=== PATIENT | male | born 1985 | race African-American/Black ===

== ENCOUNTER 2022-11-03 19:05 | Emergency (ER) | payer MEDICAID ==
[2022-11-03] MEDS ORDERED: Hydromorphone 1 mg/ml Injection IV ONE ×2 (19:35→20:19)
[2022-11-03] MEDS ORDERED: Lactated Ringers 1,000 ML IV ONE ×4 (19:35→20:40)
[2022-11-03 19:41] VITALS: TEMP 98.3
[2022-11-03] MEDS ORDERED: Hydromorphone 1 mg/ml Injection ONE ×2 (19:43→20:21)
--- NOTE | 2022-11-03 19:54 | ERPHSYRPT ---
- History of Present Illness Time Seen by Provider: 11/03/22 19:53 Source: patient Exam Limitations: no limitations Patient Subjective Stated Complaint: pt states he is here to be treated for his sickle cell pain. he reports that he is having his "typical sickle cell pain" that is located to bilateral upper chest and bilat upper back. he describes it as constant ache, sharp, and pressure that is rated 9/10. he reports that this pain started yesterday morning and is better today than it was yesterday. he states he was at his [facility] folder office with [facility] yesterday morning for his pain and to get prescription refills. while there he rec'd an infusion "of some pain medicine" that didn't lessen his pain at all so was told to go to the ER. pt normally is treated to [facility] in [place] so he went there yesterday. in the ER he rec'd "a shot of something" in right upper arm then was sent home without any relief. he came here today to "try this hospital out and see how it goes". Triage Nursing Assessment: pt is alert and oriented times three, ambulated independently with slow steady gait to room 9, resp even and unlabored, able to move all extremities, able to speak in complete sentences. denies other pain that "sickle cell pain to chest and back", denies sob, nausea, vomiting, difficulty breathing, or other ill feelings. bilat radial and dorsalis pedus pulses regular, equal, and present. heart sounds are present and regular. bilat anterior lung sounds clear throughout. Physician History: pt states he is here to be treated for his sickle cell pain. he reports that he is having his "typical sickle cell pain" that is located to bilateral upper chest and bilat upper back. he describes it as constant ache, sharp, and pressure that is rated 9/10. he reports that this pain started yesterday morning and is better today than it was yesterday. he states he was at his [facility] office with [facility] yesterday morning for his pain and to get prescription refills. while there he rec'd an infusion "of some pain medicine" that didn't lessen his pain at all so was told to go to the ER. pt normally is treated to [facility] in [place] so he went there yesterday. in the ER he rec'd "a shot of something" in right upper arm then was sent home without any relief. he came here today to "try this hospital out and see how it goes". Timing/Duration: today Severity: moderate Associated Symptoms: denies symptoms Allergies/Adverse Reactions: No Known Drug Allergies Allergy (Verified 11/03/22 19:15) Home Medications: Gabapentin 600 mg PO BID 11/03/22 [History] Hydromorphone HCl 2 mg [Dilaudid 2 MG] 2 mg PO Q4HPRN PRN 11/03/22 [History] Hydroxyurea [Hydrea] 500 mg PO TID 11/03/22 [History] Ondansetron ODT 4 MG [Zofran Odt 4 mg] 4 mg PO Q8H PRN PRN 11/03/22 [History] Oxycodone HCl [Oxycodone HCl ER] 10 mg PO Q6HPRN PRN 11/03/22 [History] Pyridoxine HCl (Vitamin B6) [Vitamin B-6] 50 mg PO DAILY 11/03/22 [History] Hx Tetanus, Diphtheria Vaccination/Date Given: Yes Hx Influenza Vaccination/Date Given: Yes Hx Pneumococcal Vaccination/Date Given: No Immunizations Up to Date: Yes Travel Risk - International Travel Have you traveled outside of the country in past 3 weeks: No - Coronavirus Screening Are you exhibiting any of the following symptoms?: No Close contact with a COVID-19 positive Pt in past 14-21 Days: No - Vaccine Status Have you recieved a Covid-19 vaccination: Yes [employer]: [employer] - Review of Systems Constitutional: No Fever, No Chills Eyes: No Symptoms Ears, Nose, & Throat: No Symptoms Respiratory: No Cough, No Dyspnea Cardiac: No Chest Pain, No Edema, No Syncope Abdominal/Gastrointestinal: No Abdominal Pain, No Nausea, No Vomiting, No Diarrhea Genitourinary Symptoms: No Dysuria Musculoskeletal: Back Pain, Neck Pain, Joint Pain, Myalgias Skin: No Rash Neurological: No Dizziness, No Focal Weakness, No Sensory Changes Psychological: No Symptoms Endocrine: No Symptoms All Other Systems: Reviewed and Negative - Past Medical History Pertinent Past Medical History: Yes Neurological History: No Pertinent History ENT History: No Pertinent History Cardiac History: No Pertinent History Respiratory History: No Pertinent History Endocrine Medical History: No Pertinent History Musculoskeletal History: No Pertinent History GI Medical History: No Pertinent History History: No Pertinent History Psycho-Social History: No Pertinent History Male Reproductive Disorders: No Pertinent History Other Medical History: sickle cell. - Past Surgical History Past Surgical History: Yes Neuro Surgical History: No Pertinent History Cardiac: No Pertinent History Respiratory: No Pertinent History Gastrointestinal: No Pertinent History Genitourinary: No Pertinent History Musculoskeletal: No Pertinent History Male Surgical History: No Pertinent History Other Surgical History: right upper chest port a cath placement in 2018 - Social History Smoking Status: Never smoker Exposure to second hand smoke: No Drug Use: marijuana Patient Lives Alone: No - Nursing Vital Signs Nursing Vital Signs: Initial Vital Signs Pulse Rate 88 11/03/22 19:13 Respiratory Rate 19 11/03/22 19:13 Blood Pressure 147/88 11/03/22 19:13 O2 Sat by Pulse Oximetry 94 L 11/03/22 19:13 Pain Scale Pain Intensity 5 - Physical Exam General Appearance: no apparent distress, alert Eye Exam: PERRL/EOMI, eyes nml inspection Ears, Nose, Throat Exam: normal ENT inspection, TMs normal, pharynx normal, moist mucous membranes Neck Exam: normal inspection, non-tender, supple, full range of motion Respiratory Exam: normal breath sounds, lungs clear, No respiratory distress Cardiovascular Exam: regular rate/rhythm, normal heart sounds, normal peripheral pulses Gastrointestinal/Abdomen Exam: soft, normal bowel sounds, No tenderness, No mass Back Exam: normal inspection, normal range of motion, No CVA tenderness, No vertebral tenderness Extremity Exam: normal inspection, normal range of motion, pelvis stable Neurologic Exam: alert, oriented x 3, cooperative, normal mood/affect, nml cerebellar function, nml station & gait, sensation nml, No motor deficits Skin Exam: normal color, warm, dry, No rash Lymphatic Exam: No adenopathy SpO2: 95 - Course Nursing assessment & vital signs reviewed: Yes Ordered Tests: Active Orders 24 hr Category Date Time Status CBC W DIFF Stat Lab 11/03/22 20:02 Completed CMP Stat Lab 11/03/22 20:02 Completed Manual Differential NC Stat Lab 11/03/22 20:02 Completed Medication Summary Generic Name Dose Route Start Last Admin Trade Name Freq PRN Reason Stop Dose Admin Hydromorphone HCl 4 mg 11/03/22 21:22 Hydromorphone Hcl 4 Mg Tab PO 11/08/22 21:21 Q4H PRN PRN PAIN Discontinued Medications Generic Name Dose Route Start Last Admin Trade Name Makq PRN Reason Stop Dose Admin Hydromorphone HCl 1 mg 11/03/22 19:35 11/03/22 19:46 Hydromorphone 1 Mg/1ml Inj IV 11/03/22 19:36 1 mg STAT ONE Administration Hydromorphone HCl Confirm 11/03/22 19:43 Hydromorphone 1 Mg/1ml Inj Administered 11/03/22 19:44 Dose 1 mg .ROUTE .STK-MED ONE Hydromorphone HCl 1 mg 11/03/22 20:19 11/03/22 20:23 Hydromorphone 1 Mg/1ml Inj IV 11/03/22 20:20 1 mg STAT ONE Administration Hydromorphone HCl Confirm 11/03/22 20:21 Hydromorphone 1 Mg/1ml Inj Administered 11/03/22 20:22 Dose 1 mg .ROUTE .STK-MED ONE Lactated Ringer's 1,000 mls @ 999 mls/hr 11/03/22 19:35 11/03/22 20:51 Lactated Ringers IV 11/03/22 20:35 Infused .Q1H1M ONE Infusion Lactated Ringer's Confirm 11/03/22 19:43 Lactated Ringers Administered 11/03/22 19:44 Dose 1,000 mls @ ud IV .STK-MED ONE Lactated Ringer's 1,000 mls @ 999 mls/hr 11/03/22 20:24 11/03/22 20:41 Lactated Ringers IV 11/03/22 21:24 999 mls/hr .Q1H1M ONE Administration Lactated Ringer's Confirm 11/03/22 20:40 Lactated Ringers Administered 11/03/22 20:41 Dose 1,000 mls @ ud IV .STK-MED ONE Ketamine HCl 50 mg 11/03/22 20:32 11/03/22 21:24 Ketamine Hcl 50 Mg/Ml IV 11/03/22 20:33 Not Given STAT ONE Ketorolac Tromethamine 30 mg 11/03/22 20:33 11/03/22 20:41 Ketorolac Tromethamine 30 Mg/Ml Inj IV 11/03/22 20:34 30 mg STAT ONE Administration Ketorolac Tromethamine Confirm 11/03/22 20:40 Ketorolac Tromethamine 30 Mg/Ml Inj Administered 11/03/22 20:41 Dose 30 mg .ROUTE .STK-MED ONE Ketorolac Tromethamine 30 mg 11/03/22 21:08 11/03/22 21:27 Ketorolac Tromethamine 30 Mg/Ml Inj IV 11/03/22 21:09 30 mg STAT ONE Administration Ketorolac Tromethamine Confirm 11/03/22 21:25 Ketorolac Tromethamine 30 Mg/Ml Inj Administered 11/03/22 21:26 Dose 30 mg .ROUTE .STK-MED ONE Lab/Rad Data: Laboratory Result Diagrams 11/03/22 20:02 11/03/22 20:02 Laboratory Results 11/03/22 11/03/22 Range/Units 20:02 20:02 WBC 9.4 (4.0-10.5) x10^3/uL RBC 3.01 L (4.1-5.6) x10^6/uL Hgb 8.9 L (12.5-18.0) g/dL Hct 26.4 L (42-50) % MCV 87.7 (78-100) fL MCH 29.6 (26-32) pg MCHC 33.7 (32-36) g/dL RDW 19.9 H (11.5-14.0) % Plt Count 525 H (150-450) x10^3/uL MPV 10.4 (7.5-11.0) fL Sodium 138 (137-145) mmol/L Potassium 4.2 (3.5-5.1) mmol/L Chloride 102 (98-107) mmol/L Carbon Dioxide 26 (22-30) mmol/L Anion Gap 14.4 (5-15) MEQ/L BUN 11 (9-20) mg/dL Creatinine 1.06 (0.66-1.25) mg/dL Estimated GFR > 60.0 ML/MIN Glucose 94 (74-106) mg/dL Calcium 9.4 (8.4-10.2) mg/dL Total Bilirubin 2.00 H (0.2-1.3) mg/dL AST 62 H (17-59) U/L ALT 34 (0-50) U/L Alkaline Phosphatase 116 (38-126) U/L Serum Total Protein 8.3 H (6.3-8.2) g/dL Albumin 4.6 (3.5-5.0) g/dL - Progress Progress: improved, pain not gone completely Counseled pt/family regarding: lab results, diagnosis, need for follow-up - Departure Departure Disposition: Home Clinical Impression: Sickle cell crisis acute chest syndrome Condition: Stable Critical Care Time: No Referrals: DOCTOR,NO FAMILY [Primary Care Provider] - Follow up/PCP as directed Instructions: Sickle Cell Disease Pain ED Additional Instructions: Contact your pain management physician for your narcotic pain medication. Allow lots of p.o. fluids. Follow-up with your pain management physician in next 2 to 3 days if pain is not better. Discharge/Care Plan NIKOLAS CHAPPELL was seen on 11/03/22 in the Emergency Room. The patient was counseled regarding Diagnosis,Lab results, Imaging studies, need for follow up and when to return to the Emergency Room. Prescriptions given: Discharge Note I have spoken with the patient and/or caregivers. I have explained the patient's condition, diagnosis and treatment plan based on the information available to me at this time. I have answered the patient's and/or caregiver's questions and addressed any concerns. The patient and/or caregivers have as good understanding of the patient's diagnosis, condition and treatment plan as can be expected at this point. The vital signs have been stable. The patient's condition is stable and appropriate for discharge from the emergency department. The patient will pursue further outpatient evaluation with the primary care physician or other designated or consulting physician as outlined in the discharge instructions. The patient and/or caregivers are agreeable to this plan of care and follow-up instructions have been explained in detail. The patient and/or caregivers have received these instruction. The patient/and or caregivers are aware that any significant change in condition or worsening of symptoms should prompt an immediate return to this or the closest emergency department or call 911. NIKOLAS CHAPPELL was seen on 11/03/22 n the Emergency Room. At that time you were treated for an emergent condition, during your visit Laboratory, Radiology and/or other procedures may have been ordered. It is very important that you follow-up with your Primary Care Physician NO FAMILY DOCTOR within the next 24- 48 hours to review your Emergency Room visit and the final results of testing that was ordered. Some test results such as Urine Cultures, Blood Cultures, and other cultures if ordered will not be finalized for 24-48 hours. If you do not have a Primary Care Provider please call the medical records department at [phone] ext [phone] to obtain a copy of your results or you may sign into our patient portal to obtain these results by visiting us @ [email or web address] and completing the following steps: 1. Click on the Patient Portal link 2. Click the Patient Self Enrollment Link to complete the enrollment form and entering your 3. Once the enrollment form is completed you will receive an email with a temporary ID and password at the email address you provided. 4. Next choose a user name and password. Your user name must be at least 4 characters long and your password must be at least 4 characters long. 5. Choose a security question from the list and provide your answer to the question. If you already have signed into the Health Portal you may access your Health Care Information 22/10 by the following steps: 1. Login to our website @ [email or web address] 2. Enter your original user name and password. FAQS The [facility] Health Portal is an online tool that contains your Lab Results, Radiology Reports, Visit History, Discharge Instructions and Health Summary Lab and Radiology Results will not be available for 72 hours on the portal. The Portal is a secure site, passwords are encryted and URLs are re-written so they cannot be copied and pasted. You and authorized family members are the only ones who can access your Portal. Also there is a timeout feature that protects your information if you leave the Portal page open. If you have technical difficulty please use the Contact Us link on the page this will allow you to submit any questions you have regarding the Portal or you may contact the Medical Record Department at [phone] ext [phone].
[2022-11-03 20:09] LABS: Hematocrit 26.4 % (42-50); Hemoglobin 8.9 g/dL (12.5-18.0); Mean Cell Volume 87.7 fL (78-100); Mean Corpuscular Hemoglobin 29.6 pg (26-32); Mean Corpuscular Hgb Concent. 33.7 g/dL (32-36); Mean Platelet Volume 10.4 fL (7.5-11.0); Platelet Count 525 x10^3/uL (150-450); Red Blood Count 3.01 x10^6/uL (4.1-5.6); Red Cell Distribution Width 19.9 % (11.5-14.0); White Blood Count 9.4 x10^3/uL (4.0-10.5)
[2022-11-03 20:24] LABS: ALBUMIN 4.6 g/dL (3.5-5.0); ALKALINE PHOSPHATASE 116 U/L (38-126); ANION GAP 14.4 MEQ/L (5-15); BLOOD UREA NITROGEN 11 mg/dL (9-20); CHLORIDE 102 mmol/L (98-107); Calcium 9.4 mg/dL (8.4-10.2); Carbon Dioxide 26 mmol/L (22-30); Creatinine 1 1.06 mg/dL (0.66-1.25); EST GLOMERULAR FILTRATION RATE > 60.0 ML/MIN; Glucose 94 mg/dL (74-106); Potassium 4.2 mmol/L (3.5-5.1); SGOT/AST 62 U/L (17-59); SGPT/ALT 34 U/L (0-50); SODIUM 138 mmol/L (137-145); Total Protein 8.3 g/dL (6.3-8.2)
[2022-11-03] MEDS ORDERED: Ketamine HCl 50 MG/ML IV ONE (20:32)
[2022-11-03] MEDS ORDERED: TORAdol 30 mg Injection IV ONE ×2 (20:33→21:08)
[2022-11-03] MEDS ORDERED: TORAdol 30 mg Injection ONE ×2 (20:40→21:25)
[2022-11-03] MEDS ORDERED: Dilaudid 4 MG Tab PO PRN (21:22)
[2022-11-03 21:23] VITALS: BP 105/65; PULSE 81; RESP 18; O2SAT 95
[2022-11-03] MEDS ORDERED: Dilaudid 4 MG Tab ONE (21:58)
[2022-11-03 22:08] LABS: Eosinophil 2 % (0.00-3.0); Lymphocytes 42 % (24-44); Monocyte 9 % (0.0-12.0); Neutrophils 47 % (36.-66.); Nucleated Red Blood Cell 14 %; Platelet Estimate INCREASED (NORMAL); Total Cells Counted 100
[2022-11-03 22:09] LABS: Hypochromia 1+; Macrocytosis 2+; Targert Cells 2+
[2022-11-03 22:11] LABS: Sickle Cells 2+
== END 2022-11-03 22:09 | disposition home or self-care (01) ==
LOC: ED 19:05
DX: D57.01 Hb-SS disease with acute chest syndrome (principal); M54.6 Pain in thoracic spine; R07.9 Chest pain, unspecified; Z79.891 Long term (current) use of opiate analgesic; Z79.899 Other long term (current) drug therapy
CPT/HCPCS: 36000; 36415; 80053; 85025; 96374; 96375; 96376; 99284; J1170; J1642; J1885; A9270-GY